=== PATIENT | female | born 1970 | race Caucasian/White ===

== ENCOUNTER 2016-08-04 20:50 | Emergency (ER) | payer OTHER ==
[~2016-08-04 20:50] MED LIST: CINNAMON500 MG PO; DELTASONE DPS20 MG PO; GARCINIA CAMBO1 EACH PO; IRON18 MG PO; MEGA BIOTIN10000 MCG PO; MOTRIN-DPS400 MG PO; PERCOCET 5 DPS1 TAB PO; PRILOSEC DPS20 MG PO; PROAIR HFA8.5 GM IH; PROBIOTIC1 EAC1 PO; VITAMIN B125000 MCG PO
--- NOTE | 2016-08-05 03:13 | ER ---
ADMIT: 08/04/2016 RM/LOC: ER [facility] MR#: [id number] [place], [place] [id number] JADE W[address] [place] [address] Emergency Room Report SEX: F AGE: 46 : 1970 DATE: 08/04/2016 The patient is a 46-year-old female, employed at [employer], slipped and fell today injuring her right wrist, knee, left foot, possibly head. She is unsure of the exact mechanism, though it was from a standing position. Denies any history of frequent falls or previous head injury. Exam remarkable for nontoxic, afebrile female with normal vital signs. No evidence of head or neck injury. Right wrist slightly tender to palpation. Otherwise, full range of motion without deformity. Right knee abrasion but able to bear weight, walk. No patellar fracture palpated. Left foot and ankle, minimal swelling but tender, medial and lateral malleolus. CT head shows Dandy-Walker malformation. Dr. Jadon Sepulveda recommends MRI to rule out Chiari malformation as an outpatient. Since the patient has no learning disability or balance issues, doubt this is causal to her fall. X-ray, left foot and ankle, negative, right wrist negative. Bakari wraps applied. Wound cleansed over patella, bacitracin and Band-Aid. Ice to all wounds. Recommended ibuprofen 600 to 800 mg t.i.d. with Tylenol 1 g t.i.d. Toradol, Dilaudid, Reglan given in department. Work release for the next [address] Greer for possible MRI. Eliot Jj MD/ darci JOB #: [id number] CC: Eliot Jj MD, Attending Physician John Greer MD, Family Physician John Greer MD
== END 2016-08-04 22:45 | disposition home or self-care (01) ==
LOC: ER 20:50
DX: S63.501A Unspecified sprain of right wrist, initial encounter (principal); S93.402A Sprain of unspecified ligament of left ankle, initial encounter; S93.602A Unspecified sprain of left foot, initial encounter; S80.211A Abrasion, right knee, initial encounter; W01.0XXA Fall on same level from slipping, tripping and stumbling without subsequent striking against object, initial encounter; Y92.69 Other specified industrial and construction area as the place of occurrence of the external cause